=== PATIENT | male | born 2000 | race African-American/Black ===

== ENCOUNTER 2021-06-18 00:05 | Observation (INO) | payer OTHER, SELFPAY ==
[2021-06-18 00:53] LABS: #Basophils 0.1 10x3/uL (0.0-0.2); #Eosinphils 0.4 10x3/uL (0.0-0.5); #Monocytes 1.3 10x3/uL (0.0-1.1); %Basophils 0.4 % (0.0-2.0); %Eosinophils 2.8 % (0.0-6.0); %Monocytes 9.8 % (0.0-10.0); %Neutrophils 72.6 % (40.0-75.0); Hemoglobin 13.9 g/dL (13.5-17.5); Mean Corpuscular HGB CONC 34.2 g/dL (32.0-36.0); Mean Corpuscular Hemoglobin 30.1 pg (27.0-33.0); Mean Corpuscular Volume 87.9 fl (81.2-95.1); Mean Platelet Volume 9.6 fl (7.4-10.4); Platelet Count 294 10x3/uL (150-450); RBC Distribution Width 12.6 % (11.5-14.5); Red Blood Cell (RBC) Count 4.62 10x6/uL (4.32-5.72); White Blood Cell (WBC) Count 13.7 10x3/uL (3.5-10.5)
[2021-06-18] MEDS ORDERED: Dexamethasone 10 MG/ML VIAL ONE ×2 (00:57→02:38)
[2021-06-18 01:08] LABS: ALT (SGPT) 12 U/L (8-55); AST (SGOT) 15 U/L (5-34); Albumin 4.2 g/dL (3.5-5.0); Alkaline Phosphatase 90 U/L (50-130); Anion Gap 15 mmol/L (10-20); BUN (Urea Nitrogen) 13 mg/dL (8.9-20.6); Bilirubin, Total 0.6 mg/dL (0.2-1.2); Calc. Creatinine Clearance 0 mL/min (70-130); Calcium 9.9 mg/dL (7.8-10.44); Carbon Dioxide 28 mmol/L (22-29); Chloride 100 mmol/L (98-107); Globulin 4.5 g/dL (2.4-3.5); Glucose 91 mg/dL (70-105); Potassium 4.1 mmol/L (3.5-5.1); Protein, Total 8.7 g/dL (6.0-8.3); Sodium 139 mmol/L (136-145)
[2021-06-18] MEDS ORDERED: Acetaminophen 650 MG Suppository PR PRN (02:51)
[2021-06-18] MEDS ORDERED: Ondansetron PF 4 MG/2 ML Vial IVP PRN (02:51)
[2021-06-18] MEDS ORDERED: Morphine 2 MG/ML VIAL SLOW IVP PRN (03:12)
[2021-06-18 03:29] LABS: Magnesium 1.9 mg/dL (1.7-2.2)
[2021-06-18 03:49] VITALS: BMI 23.5
[2021-06-18] MEDS ORDERED: Sodium Chloride 0.9% 1,000 ML IV SCH (04:00)
[2021-06-18] MEDS ORDERED: Potassium Chloride 20 MEQ in Premix Bag 1 BAG IVPB SCH (04:00)
[2021-06-18] MEDS ORDERED: Oxymetazoline HCl 0.05% ( 15 ML ) ONE (07:28)
[2021-06-18] MEDS ORDERED: Dexmedetomidine 200 MCG/2 ML VIAL ONE (07:38)
[2021-06-18] MEDS ORDERED: PROPOFOL 20 ML ONE (07:43)
[2021-06-18] MEDS ORDERED: Fentanyl 100 MCG/2 ML VIAL ONE (07:43)
[2021-06-18] MEDS ORDERED: Ondansetron PF 4 MG/2 ML Vial ONE (07:44)
[2021-06-18] MEDS ORDERED: Dexamethasone 20 MG/5 ML VIAL ONE (07:44)
[2021-06-18] MEDS ORDERED: Succinylcholine 200 MG/10 ml SYRINGE FS ONE (07:48)
[2021-06-18] MEDS ORDERED: Iopamidol 300 61% 100 ML VIAL FS ONE (10:00)
[2021-06-18] MEDS ORDERED: Clindamycin/D5W 900 MG in Premix Bag 1 BAG IVPB SCH (10:30)
[2021-06-18 15:08] VITALS: BP 120/70; TEMP 98
[2021-06-18] MEDS ORDERED: Enoxaparin Sodium 40 MG/0.4 ML SYRINGE SC SCH (21:00)
[2021-06-18 21:14] LABS: SARS-CoV-2 PCR by NAA Not Detected (NotDetected)
== END 2021-06-18 11:30 | disposition home or self-care (01) ==
LOC: CSHERS 00:05 → CSHTELE 02:49
PROVIDERS: ADMIT Family Medicine; ATTEND Internal Medicine
DX: J36 Peritonsillar abscess (principal); Z20.822 Contact with and (suspected) exposure to COVID-19
CPT/HCPCS: 70491; 80053; 83735; 85025; 87070; 87077; 87205; 94760; 96365; 96375; 96376; G0378; J1100; J2270; J2405; J2704; J3010; J3480; J3490; Q9967; U0003; U0005

== ENCOUNTER 2021-09-01 04:58 | Emergency (ER) | payer OTHER | END 2021-09-01 05:10 | disposition home or self-care (01) | LOC: CSHERS 04:58 | DX: R21 Rash and other nonspecific skin eruption (principal) | CPT/HCPCS: 99282 ==